=== PATIENT | male | born 1955 | race Caucasian/White ===

== ENCOUNTER 2021-10-10 07:00 | Observation (INO) | payer OTHER ==
[2021-10-10] MEDS ORDERED: Sodium Chloride 0.9% 2.5 ML Syringe FLUSH PRN (07:37)
[2021-10-10] MEDS ORDERED: Sodium Chloride 0.9% 10 ML Syringe FLUSH PRN (07:37)
--- NOTE | 2021-10-10 07:43 | EDM.PDOC ---
ED HPI GENERAL MEDICAL PROBLEM - General Chief Complaint: Neuro Symptoms/Deficits Stated Complaint: STATES SHE BELIEVES HAD STROKE Time Seen by Provider: 10/10/21 07:30 - History of Present Illness INITIAL COMMENTS - FREE TEXT/NARRATIVE: 66-year-old male history of COPD and some prostate problems presenting with his who is concerned about the potential for stroke. Patient's states that last night the patient seemed somewhat disoriented he stumbled a little bit around the home and made loud noises that woke her up when he was trying to go the bathroom. He continues to seem somewhat slow and confused this morning so she presents for evaluation. The patient denies current history of smoking he denies any drug or alcohol use. He acknowledges that he was disoriented last night. He denies physical symptoms. No exacerbating or alleviating factors radiation or other associated symptoms. - Related Data Allergies Allergy/AdvReac Type Severity Reaction Status Date / Time No Known Allergies Allergy Verified 09/11/18 18:27 Home Meds: Home Meds . [No Known Home Meds] 09/11/18 [History] Past Medical History HEENT History: Reports: None Cardiovascular History: Reports: None Respiratory History: Reports: Asthma Gastrointestinal History: Reports: None Genitourinary History: Reports: None Musculoskeletal History: Reports: None Neurological History: Reports: None Psychiatric History: Reports: None Endocrine/Metabolic History: Reports: None Hematologic History: Reports: None Immunologic History: Reports: None Oncologic (Cancer) History: Reports: None Dermatologic History: Reports: None - Infectious Disease History Infectious Disease History: Reports: None - Past Surgical History Head Surgeries/Procedures: Reports: None Social & Family History - Family History Family Medical History: No Pertinent Family History ED ROS GENERAL - Review of Systems Review Of Systems: See Below Free Text/Narrative/Comment: General: No fever. Skin: No rash. Eyes: No vision problems. ENT: No sore throat. Neck: No neck stiffness. Respiratory: No shortness of breath. Cardiac: No chest pain. Gastrointestinal: No nausea, vomiting or abdominal pain. Urinary: No dysuria. Musculoskeletal: No myalgias/arthralgias. Neurologic: Per HPI ED EXAM, GENERAL - Physical Exam Exam: See Below Free Text/Narrative:: General Appearance: No acute distress, appears comfortable HEENT: Normocephalic/atraumatic, sclera anicteric, mucous membranes moist, mild bilateral nystagmus with bilateral lateral gaze Neck: Normal range of motion Chest and Lungs: Bilateral breath sounds, clear to auscultation Cardiovascular: Regular rate and rhythm Abdomen: Soft, non-tender Musculoskeletal: No edema or tenderness Neurologic: Alert and oriented x4, cranial nerves III through XI intact bilaterally, normal [id number] but somewhat slow, bilaterally slow [id number] but no ballismus, sensation grossly intact Psychiatric: Appropriate, cooperative #1 Interpretation EKG Date: 10/10/21 Time: 08:10 EKG Interpretation Comments: Sinus bradycardia rate of 57 normal axis and intervals no acute ischemia Course - Vital Signs Last Recorded V/S: Last Vital Signs Temp 97.4 F 10/10/21 08:30 Pulse 58 L 10/10/21 08:30 Resp 18 10/10/21 07:32 BP 113/72 10/10/21 08:30 Pulse Ox 99 10/10/21 08:30 - Orders/Labs/Meds Orders: Active Orders 24 hr Category Date Time Status CORONAVIRUS COVID-19 LALO [MOLEC] Stat Lab 10/10/21 11:00 Received Sodium Chloride 0.9% [Saline Flush] Med 10/10/21 07:37 Active 10 ml FLUSH ASDIRECTED PRN Sodium Chloride 0.9% [Saline Flush] Med 10/10/21 07:37 Active 2.5 ml FLUSH ASDIRECTED PRN Saline Lock Insert [OM.PC] Stat Oth 10/10/21 07:37 Ordered Medication Orders Sodium Chloride (Sodium Chloride 0.9% 10 Ml Syringe) 10 ml FLUSH ASDIRECTED PRN PRN Reason: Keep Vein Open Last Admin: 10/10/21 08:12 Dose: 10 ml Documented by: ELLIS Sodium Chloride (Sodium Chloride 0.9% 2.5 Ml Syringe) 2.5 ml FLUSH ASDIRECTED PRN PRN Reason: Keep Vein Open Last Admin: 10/10/21 08:12 Dose: 2.5 ml Documented by: ELLIS Labs: Laboratory Tests 10/10/21 10/10/21 10/10/21 Range/Units 07:44 07:44 08:51 WBC 5.04 (4.0-11.0) K/uL RBC 4.61 (4.50-5.90) M/uL Hgb 14.8 (13.0-17.0) g/dL Hct 43.5 (38.0-50.0) % MCV 94.4 (80.0-98.0) fL MCH 32.1 H (27.0-32.0) pg MCHC 34.0 (31.0-37.0) g/dL RDW Std Deviation 44.2 (28.0-62.0) fl RDW Coeff of Brittni 13 (11.0-15.0) % Plt Count 253 (150-400) K/uL MPV 9.70 (7.40-12.00) fL Neut % (Auto) 66.5 (48.0-80.0) % Lymph % (Auto) 22.2 (16.0-40.0) % [place] % (Auto) 9.7 (0.0-15.0) % Eos % (Auto) 1.4 (0.0-7.0) % Baso % (Auto) 0.2 (0.0-1.5) % Neut # (Auto) 3.4 (1.4-5.7) K/uL Lymph # (Auto) 1.1 (0.6-2.4) K/uL [place] # (Auto) 0.5 (0.0-0.8) K/uL Eos # (Auto) 0.1 (0.0-0.7) K/uL Baso # (Auto) 0.0 (0.0-0.1) K/uL Nucleated RBC % 0.0 /100WBC Nucleated RBCs # 0 K/uL Sodium 140 (136-148) mmol/L Potassium 3.6 (3.5-5.1) mmol/L Chloride 105 (98-107) mmol/L Carbon Dioxide 26.1 (21.0-32.0) mmol/L BUN 19 H (7.0-18.0) mg/dL Creatinine 1.0 (0.8-1.3) mg/dL Est Cr Clr Drug Dosing 79.76 mL/min Estimated GFR (MDRD) > 60.0 ml/min Glucose 127 H (74-106) mg/dL Calcium 9.0 (8.5-10.1) mg/dL Total Bilirubin 0.6 (0.2-1.0) mg/dL AST 24 (15-37) IU/L ALT 33 (14-63) IU/L Alkaline Phosphatase 48 (46-116) U/L Troponin I < 0.050 (0.000-0.056) ng/mL Total Protein 6.7 (6.4-8.2) g/dL Albumin 3.4 (3.4-5.0) g/dL Globulin 3.3 (2.6-4.0) g/dL Albumin/Globulin Ratio 1.0 (0.9-1.6) Urine Opiates Screen NEGATIVE (NEGATIVE) Ur Oxycodone Screen NEGATIVE (NEGATIVE) Urine Methadone Screen NEGATIVE (NEGATIVE) Ur Barbiturates Screen NEGATIVE (NEGATIVE) Ur Phencyclidine Scrn NEGATIVE (NEGATIVE) Ur Amphetamine Screen NEGATIVE (NEGATIVE) U Methamphetamines Scrn NEGATIVE (NEGATIVE) U Benzodiazepines Scrn NEGATIVE (NEGATIVE) U Cocaine Metab Screen NEGATIVE (NEGATIVE) U Marijuana (THC) Screen NEGATIVE (NEGATIVE) Ethyl Alcohol 3 mg/dL Meds: Medications Generic Name Dose Route Start Last Admin Trade Name Freq PRN Reason Stop Dose Admin Sodium Chloride 10 ml 10/10/21 07:37 10/10/21 08:12 Sodium Chloride 0.9% 10 Ml Syringe FLUSH 10 ml ASDIRECTED PRN Administration Keep Vein Open Sodium Chloride 2.5 ml 10/10/21 07:37 10/10/21 08:12 Sodium Chloride 0.9% 2.5 Ml Syringe FLUSH 2.5 ml ASDIRECTED PRN Administration Keep Vein Open Discontinued Medications Generic Name Dose Route Start Last Admin Trade Name Freq PRN Reason Stop Dose Admin Iopamidol 100 ml 10/10/21 08:41 10/10/21 08:42 Iopamidol 755 Mg/Ml 500 Ml Multipack Bottle IVPUSH 10/10/21 08:42 100 ml ONETIME ONE Administration Departure - Departure Time of Disposition: 11:10 Disposition: Refer to Observation Condition: Good Clinical Impression: Encephalopathy - Discharge Information *PRESCRIPTION DRUG MONITORING PROGRAM REVIEWED*: Not Applicable *COPY OF PRESCRIPTION DRUG MONITORING REPORT IN PATIENT DANIEL: Not Applicable Referrals: Jessie Hull DO [Primary Care Provider] - Forms: ED Department Discharge Sepsis Event Note (ED) - Evaluation Sepsis Screening Result: No Definite Risk - Focused Exam Vital Signs: Vital Signs Temp Pulse Resp BP Pulse Ox 10/10/21 08:30 97.4 F 58 L 113/72 99 10/10/21 08:11 57 L 111/74 97 10/10/21 07:32 82 18 107/74 95 - My Orders Last 24 Hours: My Active Orders 10/10/21 07:37 Sodium Chloride 0.9% [Saline Flush] 10 ml FLUSH ASDIRECTED PRN Sodium Chloride 0.9% [Saline Flush] 2.5 ml FLUSH ASDIRECTED PRN Saline Lock Insert [OM.PC] Stat 10/10/21 11:00 CORONAVIRUS COVID-19 [facility] [MOLEC] Stat - Assessment/Plan Last 24 Hours: My Active Orders 10/10/21 07:37 Sodium Chloride 0.9% [Saline Flush] 10 ml FLUSH ASDIRECTED PRN Sodium Chloride 0.9% [Saline Flush] 2.5 ml FLUSH ASDIRECTED PRN Saline Lock Insert [OM.PC] Stat 10/10/21 11:00 CORONAVIRUS COVID-19 [facility] [MOLEC] Stat Assessment:: 66-year-old male presenting with signs and symptoms that are most consistent with a toxic metabolic encephalopathy. Intoxication is a consideration no findings suggest sepsis. Electrolyte derangement is a consideration no stigmata that would suggest end-stage liver disease but if LFTs abnormal could add ammonia level at that time. CT CTA ordered as well as does need to be considered. 1010: Patient's labs are unremarkable. CT CTA is likewise without acute finding. Patient remains somewhat confused and unsteady. Possibility of stroke persist. We are investigating if we will be able to order an MRI from the ER. 1100: We are not able to get an MRI from the ED today. On reassessment patient remains confused. Given this will discuss with hospitalist regarding potential for admission for observation for encephalopathy. 1108: Patient discussed in full with Dr. Meyer. Given that he remains altered will admit for observation. MRI may not be available until Wednesday. If symptoms clear before then, could potentially go home and f/u as an outpatient for this.
[2021-10-10 08:22] LABS: BLOOD UREA NITROGEN,BUN 19 mg/dL (7.0-18.0); CARBON DIOXIDE,CO2 26.1 mmol/L (21.0-32.0); CHLORIDE,CL 105 mmol/L (98-107); GLUCOSE RANDOM 127 mg/dL (74-106); POTASSIUM,K 3.6 mmol/L (3.5-5.1); SODIUM,NA 140 mmol/L (136-148)
[2021-10-10] MEDS ORDERED: Iopamidol 755 MG/ML 500 ML Multipack Bottle IVPUSH ONE (08:41)
--- NOTE | 2021-10-10 08:45 | CT ---
INDICATION: Acute stroke, slurred speech, confusion. TECHNIQUE: CTA head with contrast bolus tracking and 3D MIP reconstruction. FINDINGS: There is normal filling of the intracranial vasculature. There is no significant intracranial stenosis. There is no large vessel occlusion. No aneurysm is identified. IMPRESSION: Unremarkable head CTA. Please note that all CT scans at this facility use dose modulation, iterative reconstruction, and/or weight-based dosing when appropriate to reduce radiation dose to as low as reasonably achievable. Dictated by Juan Santo MD @ 10/10/2021 9:44:07 AM (Electronically Signed)
--- NOTE | 2021-10-10 08:47 | CT ---
Indication: Slurred speech/confusion since last evening Technique: Volumetric multidetector CT images of the head were obtained without the administration of low osmolar intravenous contrast. Comparison: None available Findings: There is no intra-axial or extra-axial fluid collection. There is no mass effect or midline shift. There is age-related cortical atrophy with mild sulcal widening and ex vacuo dilatation of the lateral ventricles. There are chronic small vessel disease changes in the subcortical and periventricular white matter without lost trotter-white differentiation. The orbits and their contents are grossly within normal limits. The bony calvarium is grossly intact. The paranasal sinuses are clear. The mastoid air cells are well aerated. Impression: 1. Age-related changes of the brain without acute intracranial abnormality. Findings reported to Dr. Robles at 8:41 a.m. September 09, [address] scans at this facility use dose modulation, iterative reconstruction, and/or weight-based dosing when appropriate to reduce radiation dose to as low as reasonably achievable. Dictated by Emmanuel Parkinson MD @ 10/10/2021 8:45:02 AM (Electronically Signed)
--- NOTE | 2021-10-10 08:51 | CT ---
INDICATION: Acute stroke, slurred speech, confusion. TECHNIQUE: CTA neck with contrast bolus tracking and 3D MIP reconstruction. FINDINGS: Both carotid and vertebral arteries have a normal course and caliber. There is no stenosis or dissection. The soft tissues of the neck are within normal limits. Advanced facet osteoarthritis is noted in the upper cervical spine. IMPRESSION: No carotid or vertebral artery stenosis or dissection. Please note that all CT scans at this facility use dose modulation, iterative reconstruction, and/or weight-based dosing when appropriate to reduce radiation dose to as low as reasonably achievable. Dictated by Juan Santo MD @ 10/10/2021 9:46:34 AM (Electronically Signed)
--- NOTE | 2021-10-10 13:21 | PCM.HP.2 ---
H&P History of Present Illness - General Date of Service: 10/10/21 Admit Problem/Dx: Admission Diagnosis/Problem Admission Diagnosis/Problem Encephalopathy - History of Present Illness Initial Comments - Free Text/Narative: The patient is a 66-year-old male, on day 1 of service, with a significant past medical history of COPD, BPH, asthma, and arthritis, who was admitted to the medical floor today due to encephalopathy. History was obtained by both the patient and his and is as follows, yesterday night the patient started to become disoriented, and lost ability with respect to his balance and had a few falls without any injuries. He did not have slurred speech however it was slowed to the point where words became incomprehensible and then returned to comprehensible speech. The patient explains that he felt tired but denies any change in his vision, tingling, numbness, swallowing difficulties, weakness around his body, loss of bladder or bowel control, seizures, or loss of consciousness. The patient has no known drug allergies. With respect to social history he used cigarettes in the past but denies current use, alcohol consumption, and recreational drugs. His family history is noncontributory. He has no other health concerns at this time. On CBC, his white blood cell count is 5.04, hemoglobin is 14.8, hematocrit is 43.5, and platelet count is 253. On CMP, his sodium is 140, potassium is 3.6, chloride is 105, carbon dioxide is 26.1, BUN is 19, creatinine is 1.0, glucose is 127, troponins are less than 0.050. His T4, TSH, and vitamin B12 are all in the normal ranges. CT of the head showed some age-related changes of the brain without any acute intracranial abnormality. Head CTA was unremarkable. Neck CT showed no carotid or vertebral artery stenosis and/or dissections. EKG showed a sinus bradycardia MRI of the brain with and without contrast is pending In the emergency department, the patient had all of these imaging modalities and blood tests ordered. In the ED the patient also received iopamidol 500 mL IV push once as contrast. The patient was also seen by neurologist Dr. Chapman while stationed in the ED. - Related Data Allergies/Adverse Reactions: Allergies Allergy/AdvReac Type Severity Reaction Status Date / Time No Known Allergies Allergy Verified 09/11/18 18:27 Home Medications: Home Meds . [No Known Home Meds] 09/11/18 [History] Past Medical History HEENT History: Reports: None Cardiovascular History: Reports: None Respiratory History: Reports: Asthma Gastrointestinal History: Reports: None Genitourinary History: Reports: None Musculoskeletal History: Reports: None Neurological History: Reports: None Psychiatric History: Reports: None Endocrine/Metabolic History: Reports: None Hematologic History: Reports: None Immunologic History: Reports: None Oncologic (Cancer) History: Reports: None Dermatologic History: Reports: None - Infectious Disease History Infectious Disease History: Reports: None - Past Surgical History Head Surgeries/Procedures: Reports: None Social & Family History - Family History Family Medical History: No Pertinent Family History - Tobacco Use Tobacco Use Status *Q: Never Tobacco User Second Hand Smoke Exposure: No - Caffeine Use Caffeine Use: Reports: Coffee - Recreational Drug Use Recreational Drug Use: No H&P Review of Systems - Review of Systems: Review Of Systems: See Below General: Reports: Weakness, Fatigue. Denies: Fever, Chills, Diaphoresis HEENT: Denies: Headaches, Sore Throat, Vertigo Pulmonary: Denies: Shortness of Breath, Pleuritic Chest Pain Cardiovascular: Denies: Chest Pain, Palpitations, Dyspnea on Exertion Gastrointestinal: Denies: Abdominal Pain Genitourinary: Denies: Dysuria Neurological: Reports: Change in Speech, Gait Disturbance Exam - Exam Exam: See Below - Vital Signs Vital Signs: Last Vital Signs Temp 97.4 F 10/10/21 08:30 Pulse 63 10/10/21 12:00 Resp 16 10/10/21 11:00 BP 125/73 10/10/21 12:00 Pulse Ox 97 10/10/21 12:00 Weight: 206 lb - Exam General: Alert, Oriented, Cooperative HEENT: Mucosa Moist & [place] Neck: Trachea Midline Lungs: Clear to Auscultation, Normal Respiratory Effort Cardiovascular: Regular Rate, Regular Rhythm GI/Abdominal Exam: Normal Bowel Sounds, Soft, Non-Tender Neurological: Cranial Nerves Intact, Reflexes Equal Bilateral, Strength Equal Bilateral, Normal Gait, Normal Speech, Sensation Intact - Patient Data Lab Results Last 24 hrs: Laboratory Results - last 24 hr 10/10/21 10/10/21 10/10/21 Range/Units 07:44 07:44 08:51 WBC 5.04 (4.0-11.0) K/uL RBC 4.61 (4.50-5.90) M/uL Hgb 14.8 (13.0-17.0) g/dL Hct 43.5 (38.0-50.0) % MCV 94.4 (80.0-98.0) fL MCH 32.1 H (27.0-32.0) pg MCHC 34.0 (31.0-37.0) g/dL RDW Std Deviation 44.2 (28.0-62.0) fl RDW Coeff of Brittni 13 (11.0-15.0) % Plt Count 253 (150-400) K/uL MPV 9.70 (7.40-12.00) fL Neut % (Auto) 66.5 (48.0-80.0) % Lymph % (Auto) 22.2 (16.0-40.0) % [place] % (Auto) 9.7 (0.0-15.0) % Eos % (Auto) 1.4 (0.0-7.0) % Baso % (Auto) 0.2 (0.0-1.5) % Neut # (Auto) 3.4 (1.4-5.7) K/uL Lymph # (Auto) 1.1 (0.6-2.4) K/uL [place] # (Auto) 0.5 (0.0-0.8) K/uL Eos # (Auto) 0.1 (0.0-0.7) K/uL Baso # (Auto) 0.0 (0.0-0.1) K/uL Nucleated RBC % 0.0 /100WBC Nucleated RBCs # 0 K/uL Sodium 140 (136-148) mmol/L Potassium 3.6 (3.5-5.1) mmol/L Chloride 105 (98-107) mmol/L Carbon Dioxide 26.1 (21.0-32.0) mmol/L BUN 19 H (7.0-18.0) mg/dL Creatinine 1.0 (0.8-1.3) mg/dL Est Cr Clr Drug Dosing 79.76 mL/min Estimated GFR (MDRD) > 60.0 ml/min Glucose 127 H (74-106) mg/dL Calcium 9.0 (8.5-10.1) mg/dL Total Bilirubin 0.6 (0.2-1.0) mg/dL AST 24 (15-37) IU/L ALT 33 (14-63) IU/L Alkaline Phosphatase 48 (46-116) U/L Troponin I < 0.050 (0.000-0.056) ng/mL Total Protein 6.7 (6.4-8.2) g/dL Albumin 3.4 (3.4-5.0) g/dL Globulin 3.3 (2.6-4.0) g/dL Albumin/Globulin Ratio 1.0 (0.9-1.6) Urine Opiates Screen NEGATIVE (NEGATIVE) Ur Oxycodone Screen NEGATIVE (NEGATIVE) Urine Methadone Screen NEGATIVE (NEGATIVE) Ur Barbiturates Screen NEGATIVE (NEGATIVE) Ur Phencyclidine Scrn NEGATIVE (NEGATIVE) Ur Amphetamine Screen NEGATIVE (NEGATIVE) U Methamphetamines Scrn NEGATIVE (NEGATIVE) U Benzodiazepines Scrn NEGATIVE (NEGATIVE) U Cocaine Metab Screen NEGATIVE (NEGATIVE) U Marijuana (THC) Screen NEGATIVE (NEGATIVE) Ethyl Alcohol 3 mg/dL SARS-CoV-2 RNA (LAOL) (NEGATIVE) 10/10/21 Range/Units 11:00 WBC (4.0-11.0) K/uL RBC (4.50-5.90) M/uL Hgb (13.0-17.0) g/dL Hct (38.0-50.0) % MCV (80.0-98.0) fL MCH (27.0-32.0) pg MCHC (31.0-37.0) g/dL RDW Std Deviation (28.0-62.0) fl RDW Coeff of Brittni (11.0-15.0) % Plt Count (150-400) K/uL MPV (7.40-12.00) fL Neut % (Auto) (48.0-80.0) % Lymph % (Auto) (16.0-40.0) % [place] % (Auto) (0.0-15.0) % Eos % (Auto) (0.0-7.0) % Baso % (Auto) (0.0-1.5) % Neut # (Auto) (1.4-5.7) K/uL Lymph # (Auto) (0.6-2.4) K/uL [place] # (Auto) (0.0-0.8) K/uL Eos # (Auto) (0.0-0.7) K/uL Baso # (Auto) (0.0-0.1) K/uL Nucleated RBC % /100WBC Nucleated RBCs # K/uL Sodium (136-148) mmol/L Potassium (3.5-5.1) mmol/L Chloride (98-107) mmol/L Carbon Dioxide (21.0-32.0) mmol/L BUN (7.0-18.0) mg/dL Creatinine (0.8-1.3) mg/dL Est Cr Clr Drug Dosing mL/min Estimated GFR (MDRD) ml/min Glucose (74-106) mg/dL Calcium (8.5-10.1) mg/dL Total Bilirubin (0.2-1.0) mg/dL AST (15-37) IU/L ALT (14-63) IU/L Alkaline Phosphatase (46-116) U/L Troponin I (0.000-0.056) ng/mL Total Protein (6.4-8.2) g/dL Albumin (3.4-5.0) g/dL Globulin (2.6-4.0) g/dL Albumin/Globulin Ratio (0.9-1.6) Urine Opiates Screen (NEGATIVE) Ur Oxycodone Screen (NEGATIVE) Urine Methadone Screen (NEGATIVE) Ur Barbiturates Screen (NEGATIVE) Ur Phencyclidine Scrn (NEGATIVE) Ur Amphetamine Screen (NEGATIVE) U Methamphetamines Scrn (NEGATIVE) U Benzodiazepines Scrn (NEGATIVE) U Cocaine Metab Screen (NEGATIVE) U Marijuana (THC) Screen (NEGATIVE) Ethyl Alcohol mg/dL SARS-CoV-2 RNA ([facility]ALO) NEGATIVE (NEGATIVE) Result Diagrams: 10/10/21 07:44 10/10/21 07:44 Sepsis Event Note - Evaluation Sepsis Screening Result: No Definite Risk - Focused Exam Vital Signs: Vital Signs Temp Pulse Resp BP Pulse Ox 10/10/21 12:00 63 125/73 97 10/10/21 11:00 70 16 128/78 94 L 10/10/21 10:00 67 16 124/75 95 10/10/21 09:00 62 16 121/78 94 L 10/10/21 08:30 97.4 F 58 L 113/72 99 10/10/21 08:11 57 L 111/74 97 10/10/21 07:32 82 18 107/74 95 - Problem List (1) Asthma SNOMED Code(s): 510932798 ICD Code: J45.909 - UNSPECIFIED ASTHMA, UNCOMPLICATED Status: Acute Current Visit: Yes (2) BPH (benign prostatic hyperplasia) SNOMED Code(s): 466949583 ICD Code: N40.0 - BENIGN PROSTATIC HYPERPLASIA WITHOUT LOWER URINRY TRACT SYMP Status: Acute Current Visit: Yes (3) Encephalopathy SNOMED Code(s): 42910106 ICD Code: G93.40 - ENCEPHALOPATHY, UNSPECIFIED Status: Acute Current Visit: Yes Problem List Initiated/Reviewed/Updated: Yes Orders Last 24hrs: Active Orders 24 hr Category Date Time Status Patient Status [ADT] Routine ADT 10/10/21 11:27 Active Sodium Chloride 0.9% [Saline Flush] Med 10/10/21 07:37 Active 10 ml FLUSH ASDIRECTED PRN Sodium Chloride 0.9% [Saline Flush] Med 10/10/21 07:37 Active 2.5 ml FLUSH ASDIRECTED PRN Saline Lock Insert [OM.PC] Stat Oth 10/10/21 07:37 Ordered Medication Orders Sodium Chloride (Sodium Chloride 0.9% 10 Ml Syringe) 10 ml FLUSH ASDIRECTED PRN PRN Reason: Keep Vein Open Last Admin: 10/10/21 08:12 Dose: 10 ml Documented by: ELLIS Sodium Chloride (Sodium Chloride 0.9% 2.5 Ml Syringe) 2.5 ml FLUSH ASDIRECTED PRN PRN Reason: Keep Vein Open Last Admin: 10/10/21 08:12 Dose: 2.5 ml Documented by: ELLIS Assessment/Plan Comment:: Admit the patient to the medical floor, vitals per unit routine, activity up ad yesy., regular diet, DVT prophylaxis with sequential compression devices, GI prophylaxis with pantoprazole 40 mg per oral route once a day, the patient is full code 1. Encephalopathy -CT of the head, head CT, and neck CT were all within normal limits and did not display any abnormalities, as result we will proceed with brain MRI with and without contrast -Neurologist Dr. Chapman has seen the patient and performed a full neurological examination; if no abnormalities are seen on brain MRI/labs, the patient can be discharged home -This may also be due to the patient's BPH medication, Tamsulosin potentially, we have put the patient on a cardiac rehabilitation program director/telemetry and will perform orthostatic vital sign readings -Monitor patient's labs daily CBC/CMP 2. Asthma history -The patient has been placed on duo nebulizer treatment as needed
[2021-10-10] MEDS ORDERED: Albuterol/Ipratropium 3.0-0.5 MG/3 ML Neb Soln NEB PRN (14:00)
[2021-10-10] MEDS: Pantoprazole 40 MG Tab.CR PO SCH (14:53)
--- NOTE | 2021-10-10 15:34 | PCM.CONS ---
H&P History of Present Illness - General Date of Service: 10/10/21 Admit Problem/Dx: Admission Diagnosis/Problem Admission Diagnosis/Problem Encephalopathy - History of Present Illness Initial Comments - Free Text/Narative: About 2 am, he got up to go to the bathroom and felt disoriented. He didnt w alk directly to the bathroom and did at one point run into a wall. His notes that he typically is quiet when he gets up to go to the bathroom, and this time he was loud, making sounds like he was frustrated/angry. This morning he was speaking very slowly, speech slightly slurred and gait was stumbling. Since being in the ED, he has significantly improved according to his . He denies recent illness, f/c, cough, diarrhea. He takes supplements, finasteride and another medications for prostate. He is fairly confident that he did not accidently takes prostate med twice. No ETOH. COVID test in ED negative. CT head, CTA head and neck in ED negative. CBC and CMP negative. - Related Data Allergies/Adverse Reactions: Allergies Allergy/AdvReac Type Severity Reaction Status Date / Time No Known Allergies Allergy Verified 09/11/18 18:27 Home Medications: Home Meds . [No Known Home Meds] 09/11/18 [History] Past Medical History HEENT History: Reports: None Cardiovascular History: Reports: None Respiratory History: Reports: Asthma Gastrointestinal History: Reports: None Genitourinary History: Reports: None Musculoskeletal History: Reports: None Neurological History: Reports: None Psychiatric History: Reports: None Endocrine/Metabolic History: Reports: None Hematologic History: Reports: None Immunologic History: Reports: None Oncologic (Cancer) History: Reports: None Dermatologic History: Reports: None - Infectious Disease History Infectious Disease History: Reports: None - Past Surgical History Head Surgeries/Procedures: Reports: None Social & Family History - Family History Family Medical History: No Pertinent Family History - Tobacco Use Tobacco Use Status *Q: Never Tobacco User Second Hand Smoke Exposure: No - Caffeine Use Caffeine Use: Reports: Coffee - Recreational Drug Use Recreational Drug Use: No H&P Review of Systems - Review of Systems: Review Of Systems: Comprehensive ROS is negative, except as noted in HPI. Exam - Exam Exam: See Below - Vital Signs Vital Signs: Last Vital Signs Temp 36.3 C 10/10/21 08:30 Pulse 53 L 10/10/21 13:30 Resp 16 10/10/21 11:00 BP 104/57 L 10/10/21 13:30 Pulse Ox 95 10/10/21 13:30 Weight: 93.44 kg - Exam Physical Exam Comments:: General: Normal activity, good hygiene, appropriate appearance. Level of consciousness: Awake, alert. Orientation: Oriented to person, place, time and situation. Concentration/Attention Span: Spells world backward without difficulty. Comprehension/Praxis: Able to perform a three step command. Fund of Knowledge/memory: Reg 3/3, recall 0/3 Language: Fluent and articulate without evidence of aphasia or dysarthria. Thought Content: Normal. Insight/Judgement: Normal. Cranial Nerves: Pupils equally round and reactive to light. Visual vieira full to confrontation. Gaze conjugate, EOMI. Sensation intact and symmetric to light touch. Facial strength is full and symmetric. Palate elevates symmetrically. Normal shrug bilaterally. Tongue protrudes midline Motor: Normal tone in all groups. No drift. Power is 5/5 throughout proximal and distal muscles. Sensation: Sensation is intact to temp Deep tendon reflexes: Normoactive throughout. Plantar reflexes are down going. Coordination: Finger to nose, heel to duron and rapid alternating movements are intact. Gait: Casual gait intact slightly wide based. - Patient Data Lab Results Last 24 hrs: Laboratory Results - last 24 hr 10/10/21 10/10/21 10/10/21 Range/Units 07:44 07:44 07:44 WBC 5.04 (4.0-11.0) K/uL RBC 4.61 (4.50-5.90) M/uL Hgb 14.8 (13.0-17.0) g/dL Hct 43.5 (38.0-50.0) % MCV 94.4 (80.0-98.0) fL MCH 32.1 H (27.0-32.0) pg MCHC 34.0 (31.0-37.0) g/dL RDW Std Deviation 44.2 (28.0-62.0) fl RDW Coeff of Brittni 13 (11.0-15.0) % Plt Count 253 (150-400) K/uL MPV 9.70 (7.40-12.00) fL Neut % (Auto) 66.5 (48.0-80.0) % Lymph % (Auto) 22.2 (16.0-40.0) % Moore % (Auto) 9.7 (0.0-15.0) % Eos % (Auto) 1.4 (0.0-7.0) % Baso % (Auto) 0.2 (0.0-1.5) % Neut # (Auto) 3.4 (1.4-5.7) K/uL Lymph # (Auto) 1.1 (0.6-2.4) K/uL Moore # (Auto) 0.5 (0.0-0.8) K/uL Eos # (Auto) 0.1 (0.0-0.7) K/uL Baso # (Auto) 0.0 (0.0-0.1) K/uL Nucleated RBC % 0.0 /100WBC Nucleated RBCs # 0 K/uL Sodium 140 (136-148) mmol/L Potassium 3.6 (3.5-5.1) mmol/L Chloride 105 (98-107) mmol/L Carbon Dioxide 26.1 (21.0-32.0) mmol/L BUN 19 H (7.0-18.0) mg/dL Creatinine 1.0 (0.8-1.3) mg/dL Est Cr Clr Drug Dosing 79.76 mL/min Estimated GFR (MDRD) > 60.0 ml/min Glucose 127 H (74-106) mg/dL Calcium 9.0 (8.5-10.1) mg/dL Total Bilirubin 0.6 (0.2-1.0) mg/dL AST 24 (15-37) IU/L ALT 33 (14-63) IU/L Alkaline Phosphatase 48 (46-116) U/L Troponin I < 0.050 (0.000-0.056) ng/mL Total Protein 6.7 (6.4-8.2) g/dL Albumin 3.4 (3.4-5.0) g/dL Globulin 3.3 (2.6-4.0) g/dL Albumin/Globulin Ratio 1.0 (0.9-1.6) Vitamin B12 516 (193-986) pg/mL Free T4 0.98 (0.76-1.46) ng/dL TSH, Ultra Sensitive 0.74 (0.36-3.74) uIU/mL Urine Opiates Screen (NEGATIVE) Ur Oxycodone Screen (NEGATIVE) Urine Methadone Screen (NEGATIVE) Ur Barbiturates Screen (NEGATIVE) Ur Phencyclidine Scrn (NEGATIVE) Ur Amphetamine Screen (NEGATIVE) U Methamphetamines Scrn (NEGATIVE) U Benzodiazepines Scrn (NEGATIVE) U Cocaine Metab Screen (NEGATIVE) U Marijuana (THC) Screen (NEGATIVE) Ethyl Alcohol 3 mg/dL SARS-CoV-2 RNA (LALO) (NEGATIVE) 10/10/21 10/10/21 Range/Units 08:51 11:00 WBC (4.0-11.0) K/uL RBC (4.50-5.90) M/uL Hgb (13.0-17.0) g/dL Hct (38.0-50.0) % MCV (80.0-98.0) fL MCH (27.0-32.0) pg MCHC (31.0-37.0) g/dL RDW Std Deviation (28.0-62.0) fl RDW Coeff of Brittni (11.0-15.0) % Plt Count (150-400) K/uL MPV (7.40-12.00) fL Neut % (Auto) (48.0-80.0) % Lymph % (Auto) (16.0-40.0) % Moore % (Auto) (0.0-15.0) % Eos % (Auto) (0.0-7.0) % Baso % (Auto) (0.0-1.5) % Neut # (Auto) (1.4-5.7) K/uL Lymph # (Auto) (0.6-2.4) K/uL Moore # (Auto) (0.0-0.8) K/uL Eos # (Auto) (0.0-0.7) K/uL Baso # (Auto) (0.0-0.1) K/uL Nucleated RBC % /100WBC Nucleated RBCs # K/uL Sodium (136-148) mmol/L Potassium (3.5-5.1) mmol/L Chloride (98-107) mmol/L Carbon Dioxide (21.0-32.0) mmol/L BUN (7.0-18.0) mg/dL Creatinine (0.8-1.3) mg/dL Est Cr Clr Drug Dosing mL/min Estimated GFR (MDRD) ml/min Glucose (74-106) mg/dL Calcium (8.5-10.1) mg/dL Total Bilirubin (0.2-1.0) mg/dL AST (15-37) IU/L ALT (14-63) IU/L Alkaline Phosphatase (46-116) U/L Troponin I (0.000-0.056) ng/mL Total Protein (6.4-8.2) g/dL Albumin (3.4-5.0) g/dL Globulin (2.6-4.0) g/dL Albumin/Globulin Ratio (0.9-1.6) Vitamin B12 (193-986) pg/mL Free T4 (0.76-1.46) ng/dL TSH, Ultra Sensitive (0.36-3.74) uIU/mL Urine Opiates Screen NEGATIVE (NEGATIVE) Ur Oxycodone Screen NEGATIVE (NEGATIVE) Urine Methadone Screen NEGATIVE (NEGATIVE) Ur Barbiturates Screen NEGATIVE (NEGATIVE) Ur Phencyclidine Scrn NEGATIVE (NEGATIVE) Ur Amphetamine Screen NEGATIVE (NEGATIVE) U Methamphetamines Scrn NEGATIVE (NEGATIVE) U Benzodiazepines Scrn NEGATIVE (NEGATIVE) U Cocaine Metab Screen NEGATIVE (NEGATIVE) U Marijuana (THC) Screen NEGATIVE (NEGATIVE) Ethyl Alcohol mg/dL SARS-CoV-2 RNA (LALO) NEGATIVE (NEGATIVE) Result Diagrams: 10/10/21 07:44 10/10/21 07:44 Sepsis Event Note - Evaluation Sepsis Screening Result: No Definite Risk - Focused Exam Vital Signs: Vital Signs Temp Pulse Resp BP Pulse Ox 10/10/21 13:30 53 L 104/57 L 95 10/10/21 12:00 63 125/73 97 10/10/21 11:00 70 16 128/78 94 L 10/10/21 10:00 67 16 124/75 95 10/10/21 09:00 62 16 121/78 94 L 10/10/21 08:30 36.3 C 58 L 113/72 99 10/10/21 08:11 57 L 111/74 97 10/10/21 07:32 82 18 107/74 95 Consult PN Assessment/Plan Procedures: Procedures ASSAY OF PSA TOTAL (05/22/15) CT THORAX DX C-/C+ (02/27/21) EMERGENCY DEPT VISIT (09/11/18) IMMUNIZATION ADMIN (09/11/18) MRI CHEST SPINE W/O DYE (03/17/16) MRI LUMBAR SPINE W/O DYE (03/17/16) MRI NECK SPINE W/O DYE (03/17/16) ROUTINE VENIPUNCTURE (05/22/15) TDAP VACCINE 7 YRS/> IM (09/11/18) THER/PROPH/DIAG IV INF INIT (09/11/18) TTE W/DOPPLER COMPLETE (11/09/18) TX/PRO/DX INJ NEW DRUG ADDON (09/11/18) X-RAY EXAM OF HAND (09/11/18) (1) Encephalopathy SNOMED Code(s): 79822961 Code(s): G93.40 - ENCEPHALOPATHY, UNSPECIFIED Current Visit: Yes Assessment:: Impression: Encephalopathy, spontaneously improving likely toxic metabolic encephalopathy but cause not clear by history, exam or initial work up, so I agree with MRI brain. An overdose of tamsulosin could cause similar symptoms, but they are pretty clear he took the same dose he has been taking for months. I would also check TSH, B12, UA. Since he is spontaneously improving, I think he can be discharged if unable to get an MRI over the weekend with plan to obtain it as outpatient next week. Problem List Initiated/Reviewed/Updated: Yes
[2021-10-10] MEDS ORDERED: Gadobenate Dimeglumine 529 MG/ML 20 ML SDV IVPUSH STA (17:33)
--- NOTE | 2021-10-10 19:08 | MR ---
DATE: 10/10/2021. CLINICAL HISTORY: Encephalopathy. TECHNIQUE: Multi-sequence, multiplanar MRI examination of the brain was performed. The following sequences of the brain were obtained: Sagittal T1 weighted, axial diffusion weighted with corresponding ADC map, FLAIR, T2 weighted with fat saturation, susceptibility weighted imaging, and post-contrast axial and coronal T1 weighted imaging. Contrast: 19 mL MultiHance. COMPARISON: Head CT dated 10/10/2021. FINDINGS: There is no restricted diffusion in the brain to indicate the presence of acute ischemia. No extra-axial collection, mass effect, or midline shift. Brain parenchymal signal, morphology, and volume are within normal limits for patient age. The ventricles are normal in size and morphology. There is no pathologic intracranial enhancement. The orbits are unremarkable. The paranasal sinuses are unremarkable. The mastoid air cells are clear. The calvarium is unremarkable. IMPRESSION: No evidence of intracranial abnormality. Dictated by Sven Smith MD @ 10/10/2021 9:48:44 PM (Electronically Signed)
[2021-10-11 08:11] LABS: BLOOD UREA NITROGEN,BUN 20 mg/dL (7.0-18.0); CARBON DIOXIDE,CO2 27.9 mmol/L (21.0-32.0); CHLORIDE,CL 105 mmol/L (98-107); GLUCOSE RANDOM 109 mg/dL (74-106); SODIUM,NA 141 mmol/L (136-148)
[2021-10-11] MEDS: Pantoprazole 40 MG Tab.CR PO SCH (08:45)
--- NOTE | 2021-10-11 11:14 | PCM.DCSUM1 ---
Discharge Summary - Hospital Course Free Text/Narrative:: The patient is a 66-year-old male, on day 2 of service, with a significant past medical history of COPD, BPH, asthma, and arthritis, who was admitted to the medical floor due to encephalopathy. Throughout the patient's hospital course he had multiple imaging modalities done in order to decipher the cause of his encephalopathy including a CT of the head, CTA of the head, and CTA of the neck. The results of all these tests were negative and did not show any abnormalities. The patient was seen by hospital neurologist Dr. Chapman who felt that this may be due to the patient's BPH medication, and that an MRI of the brain had to be done to rule out any insults. The results of an brain MRI were also negative, and blood work including a B12, TSH, T4 did not reveal any abnormalities. A urine analysis was also unremarkable. Along with this, the p atient improved drastically which points towards encephalopathy which was temporary. Nevertheless, the patient has been advised to follow-up with his PCP as soon as possible to discuss his hospital stay, symptoms, and to have a medication review of his BPH medication to ensure it is not the culprit in causing his confusion and encephalopathy. The patient has agreed to be compliant with this advice. He has also been counseled to return to the hospital if he experiences confusion, slurred speech, weakness, dizziness, loss of consciousness, chest pain, and/or palpitations. The patient is now stable and can be discharged home safely. - Discharge Data Discharge Date: 10/11/21 Discharge Disposition: Home, Self-Care 01 Condition: Stable - Referral to Home Health Primary Care Physician: Jessie Hull, DO - Discharge Diagnosis/Problem(s) (1) Asthma SNOMED Code(s): 199481389 ICD Code: J45.909 - UNSPECIFIED ASTHMA, UNCOMPLICATED Status: Acute Current Visit: Yes (2) BPH (benign prostatic hyperplasia) SNOMED Code(s): 678272109 ICD Code: N40.0 - BENIGN PROSTATIC HYPERPLASIA WITHOUT LOWER URINRY TRACT SYMP Status: Acute Current Visit: Yes (3) Encephalopathy SNOMED Code(s): 70095215 ICD Code: G93.40 - ENCEPHALOPATHY, UNSPECIFIED Status: Acute Current Visit: Yes - Patient Summary/Data Consults: Consultations 10/10/21 13:41 Consult to Physician [CONS] Routine - Patient Instructions Diet: Regular Diet as Tolerated Activity: As Tolerated Showering/Bathing: May Shower Other/Special Instructions: -Return to the hospital if you have confusion, dizziness, syncope, slurred speech, change in vision, chest pain, or palpitations. -Be compliant with your medications and take them at scheduled times. -Follow-up with your PCP in 1 to 2 weeks - Discharge Plan *PRESCRIPTION DRUG MONITORING PROGRAM REVIEWED*: Not Applicable *COPY OF PRESCRIPTION DRUG MONITORING REPORT IN PATIENT DANIEL: Not Applicable Home Medications: Home Meds . [No Known Home Meds] 09/11/18 [History] Patient Handouts: Fall Prevention in the Home, Adult, [id number], Hepatic Encephalopathy, Fall Prevention in the Home, Adult, Dizziness Forms: ED Department Discharge Referrals: Jessie Hull DO [Primary Care Provider] - - Discharge Summary/Plan Comment DC Time >30 min.: Yes Total # of Minutes for Discharge Time: 35 minutes - Review of Systems General: Denies: Fever, Weakness, Fatigue HEENT: Denies: Headaches, Sore Throat Pulmonary: Denies: Shortness of Breath, Cough Cardiovascular: Denies: Chest Pain, Palpitations Gastrointestinal: Denies: Abdominal Pain, Constipation, Diarrhea, Nausea, Vomiting Genitourinary: Denies: Dysuria Neurological: Denies: Confusion, Dizziness, Numbness, Paresthesia, Seizure, Tr ouble Speaking, Difficulty Walking, Weakness - Patient Data Vitals - Most Recent: Last Vital Signs Temp 98.2 F 10/11/21 07:00 Pulse 67 10/11/21 07:00 Resp 14 10/11/21 07:00 BP 113/67 10/11/21 07:00 Pulse Ox 90 L 10/11/21 07:00 Orthostatic Blood Pressure [ 122/71 Standing] Orthostatic Blood Pressure [ 143/74 Sitting] Orthostatic Blood Pressure [ 161/81 Supine] Weight - Most Recent: 205 lb I&O - Last 24 hours: Intake & Output 10/10/21 10/11/21 10/11/21 22:59 06:59 14:59 Intake Total 300 640 Output Total 400 980 Balance -100 -340 Lab Results - Last 24 hrs: Laboratory Results - last 24 hr 10/10/21 10/10/21 10/10/21 Range/Units 07:44 11:00 15:30 WBC (4.0-11.0) K/uL RBC (4.50-5.90) M/uL Hgb (13.0-17.0) g/dL Hct (38.0-50.0) % MCV (80.0-98.0) fL MCH (27.0-32.0) pg MCHC (31.0-37.0) g/dL RDW Std Deviation (28.0-62.0) fl RDW Coeff of Brittni (11.0-15.0) % Plt Count (150-400) K/uL MPV (7.40-12.00) fL Neut % (Auto) (48.0-80.0) % Lymph % (Auto) (16.0-40.0) % Robertson % (Auto) (0.0-15.0) % Eos % (Auto) (0.0-7.0) % Baso % (Auto) (0.0-1.5) % Neut # (Auto) (1.4-5.7) K/uL Lymph # (Auto) (0.6-2.4) K/uL Robertson # (Auto) (0.0-0.8) K/uL Eos # (Auto) (0.0-0.7) K/uL Baso # (Auto) (0.0-0.1) K/uL Nucleated RBC % /100WBC Nucleated RBCs # K/uL Sodium (136-148) mmol/L Potassium (3.5-5.1) mmol/L Chloride (98-107) mmol/L Carbon Dioxide (21.0-32.0) mmol/L BUN (7.0-18.0) mg/dL Creatinine (0.8-1.3) mg/dL Est Cr Clr Drug Dosing mL/min Estimated GFR (MDRD) ml/min Glucose (74-106) mg/dL Calcium (8.5-10.1) mg/dL Total Bilirubin (0.2-1.0) mg/dL AST (15-37) IU/L ALT (14-63) IU/L Alkaline Phosphatase (46-116) U/L Total Protein (6.4-8.2) g/dL Albumin (3.4-5.0) g/dL Globulin (2.6-4.0) g/dL Albumin/Globulin Ratio (0.9-1.6) Vitamin B12 516 (193-986) pg/mL Free T4 0.98 (0.76-1.46) ng/dL TSH, Ultra Sensitive 0.74 (0.36-3.74) uIU/mL Urine Color YELLOW Urine Appearance CLEAR Urine pH 6.5 (5.0-8.0) Ur Specific [place] 1.010 (1.001-1.035) Urine Protein NEGATIVE (NEGATIVE) mg/dL Urine Glucose (UA) NEGATIVE (NEGATIVE) mg/dL Urine Ketones NEGATIVE (NEGATIVE) mg/dL Urine Occult Blood NEGATIVE (NEGATIVE) Urine Nitrite NEGATIVE (NEGATIVE) Urine Bilirubin NEGATIVE (NEGATIVE) Urine Urobilinogen 0.2 (<2.0) EU/dL Ur Leukocyte Esterase NEGATIVE (NEGATIVE) Urine RBC 0-2 (0-2/HPF) Urine WBC 0-2 (0-5/HPF) Ur Epithelial Cells OCCASIONAL (NONE-FEW) Urine Bacteria RARE (NEGATIVE) Urine Mucus LIGHT (NONE-MOD) SARS-CoV-2 RNA (LALO) NEGATIVE (NEGATIVE) 10/11/21 10/11/21 Range/Units 07:04 07:04 WBC 5.59 (4.0-11.0) K/uL RBC 4.79 (4.50-5.90) M/uL Hgb 15.4 (13.0-17.0) g/dL Hct 45.9 (38.0-50.0) % MCV 95.8 (80.0-98.0) fL MCH 32.2 H (27.0-32.0) pg MCHC 33.6 (31.0-37.0) g/dL RDW Std Deviation 45.4 (28.0-62.0) fl RDW Coeff of Brittni 13 (11.0-15.0) % Plt Count 254 (150-400) K/uL MPV 10.00 (7.40-12.00) fL Neut % (Auto) 58.5 (48.0-80.0) % Lymph % (Auto) 28.8 (16.0-40.0) % Robertson % (Auto) 10.4 (0.0-15.0) % Eos % (Auto) 2.1 (0.0-7.0) % Baso % (Auto) 0.2 (0.0-1.5) % Neut # (Auto) 3.3 (1.4-5.7) K/uL Lymph # (Auto) 1.6 (0.6-2.4) K/uL Robertson # (Auto) 0.6 (0.0-0.8) K/uL Eos # (Auto) 0.1 (0.0-0.7) K/uL Baso # (Auto) 0.0 (0.0-0.1) K/uL Nucleated RBC % 0.0 /100WBC Nucleated RBCs # 0 K/uL Sodium 141 (136-148) mmol/L Potassium 4.0 (3.5-5.1) mmol/L Chloride 105 (98-107) mmol/L Carbon Dioxide 27.9 (21.0-32.0) mmol/L BUN 20 H (7.0-18.0) mg/dL Creatinine 0.8 (0.8-1.3) mg/dL Est Cr Clr Drug Dosing 99.69 mL/min Estimated GFR (MDRD) > 60.0 ml/min Glucose 109 H (74-106) mg/dL Calcium 8.7 (8.5-10.1) mg/dL Total Bilirubin 0.6 (0.2-1.0) mg/dL AST 19 (15-37) IU/L ALT 32 (14-63) IU/L Alkaline Phosphatase 54 (46-116) U/L Total Protein 6.8 (6.4-8.2) g/dL Albumin 3.3 L (3.4-5.0) g/dL Globulin 3.5 (2.6-4.0) g/dL Albumin/Globulin Ratio 0.9 (0.9-1.6) Vitamin B12 (193-986) pg/mL Free T4 (0.76-1.46) ng/dL TSH, Ultra Sensitive (0.36-3.74) uIU/mL Urine Color Urine Appearance Urine pH (5.0-8.0) Ur Specific [place] (1.001-1.035) Urine Protein (NEGATIVE) mg/dL Urine Glucose (UA) (NEGATIVE) mg/dL Urine Ketones (NEGATIVE) mg/dL Urine Occult Blood (NEGATIVE) Urine Nitrite (NEGATIVE) Urine Bilirubin (NEGATIVE) Urine Urobilinogen (<2.0) EU/dL Ur Leukocyte Esterase (NEGATIVE) Urine RBC (0-2/HPF) Urine WBC (0-5/HPF) Ur Epithelial Cells (NONE-FEW) Urine Bacteria (NEGATIVE) Urine Mucus (NONE-MOD) SARS-CoV-2 RNA (LALO) (NEGATIVE) Med Orders - Current: Current Medications Albuterol/Ipratropium (Albuterol/Ipratropium 3.0-0.5 Mg/3 Ml Neb Soln) 3 ml NEB Q4HRRT PRN PRN Reason: Shortness of Breath Pantoprazole Sodium (Pantoprazole 40 Mg Tab.Cr) 40 mg PO DAILY SUE Last Admin: 10/11/21 08:45 Dose: 40 mg Documented by: Sodium Chloride (Sodium Chloride 0.9% 10 Ml Syringe) 10 ml FLUSH ASDIRECTED PRN PRN Reason: Keep Vein Open Last Admin: 10/10/21 08:12 Dose: 10 ml Documented by: Sodium Chloride (Sodium Chloride 0.9% 2.5 Ml Syringe) 2.5 ml FLUSH ASDIRECTED PRN PRN Reason: Keep Vein Open Last Admin: 10/10/21 08:12 Dose: 2.5 ml Documented by: Discontinued Medications Gadobenate Dime[place]umine (Gadobenate Dime[place]umine 529 Mg/Ml 20 Ml Sdv) 20 ml IVPUSH ONETIME STA Stop: 10/10/21 17:34 Last Admin: 10/10/21 17:34 Dose: 19 ml Documented by: Iopamidol (Iopamidol 755 Mg/Ml 500 Ml Multipack Bottle) 100 ml IVPUSH ONETIME ONE Stop: 10/10/21 08:42 Last Admin: 10/10/21 08:42 Dose: 100 ml Documented by: - Exam General: Reports: Alert, Oriented, Cooperative HEENT: Reports: Mucous Membr. Moist/[place] Neck: Reports: Trachea Midline Lungs: Reports: Clear to Auscultation, Normal Respiratory Effort Cardiovascular: Reports: Regular Rate, Regular Rhythm GI/Abdominal Exam: Normal Bowel Sounds, Soft, Non-Tender Neurological: Reports: No New Focal Deficit, Normal Speech, Sensation Intact
== END 2021-10-11 12:57 | disposition home or self-care (01) ==
LOC: MW.ED 07:00 → MW.MS 11:27
PROVIDERS: ADMIT Internal Medicine; ATTEND Internal Medicine
DX: G93.40 Encephalopathy, unspecified (principal); J44.9 Chronic obstructive pulmonary disease, unspecified; N40.0 Benign prostatic hyperplasia without lower urinary tract symptoms; Z20.822 Contact with and (suspected) exposure to COVID-19
CPT/HCPCS: 36415; 70450; 70496; 70498; 70553; 80053; 80305; 80307; 81001; 82607; 84439; 84443; 84484; 85025; 87635; 99285; A9270; A9577; G0378; Q9967; U0002